=== PATIENT | male | born 1995 | race Caucasian/White ===

== ENCOUNTER 2022-01-26 18:03 | Emergency (ER) | payer MEDICARE ==
[~2022-01-26] VITALS: Ht 185.4 cm; Wt 80.0 kg
[~2022-01-26 18:03] MED LIST: ONDA4TAB11 PO
[2022-01-26 18:15] VITALS: BP 130/72
[2022-01-26] MEDS ORDERED: LIDOCAINE HCL/PF 1% 10 MG/ML 5ML VIAL INFIL ONE (18:30)
[2022-01-26] MEDS ORDERED: BACITRACIN ZINC OINT UDPKT TOP ONE (18:30)
== END 2022-01-26 19:18 | disposition home or self-care (01) ==
LOC: ER 18:58
DX: S01.112A Laceration without foreign body of left eyelid and periocular area, initial encounter (principal); X58.XXXA Exposure to other specified factors, initial encounter; Y93.89 Activity, other specified; Y92.89 Other specified places as the place of occurrence of the external cause; Y99.8 Other external cause status
CPT/HCPCS: 12013; 99282